=== PATIENT | female | born 1975 | race Caucasian/White ===

== ENCOUNTER 2020-01-28 15:44 | Outpatient (CLI) | payer OTHER ==
--- NOTE | 2020-01-28 20:20 | RAD ---
RIGHT WRIST THREE VIEWS: 01/28/20 No fracture or other bony abnormality was seen. The joints appear normal. The carpal bones appear nor mal. IMPRESSION: No acute findings. POS: HOME
== END 2020-01-28 15:45 | disposition home or self-care (01) ==
LOC: BURRAD 15:44
PROVIDERS: ATTEND Family Medicine
DX: M25.531 Pain in right wrist (principal)

== ENCOUNTER 2020-07-08 17:22 | Emergency (ER) | payer OTHER | END 2020-07-08 17:42 | disposition home or self-care (01) | LOC: BURERS 17:22 | DX: S61.411D Laceration without foreign body of right hand, subsequent encounter (principal); G43.909 Migraine, unspecified, not intractable, without status migrainosus; F41.9 Anxiety disorder, unspecified; F32.9 Major depressive disorder, single episode, unspecified | CPT/HCPCS: 99283 ==

== ENCOUNTER 2020-07-10 17:29 | Emergency (ER) | payer OTHER ==
[2020-07-10] MEDS ORDERED: Ondansetron PF 4 MG/2 ML Vial ONE (17:58)
[2020-07-10] MEDS ORDERED: Morphine 4 MG/ML VIAL ONE (17:58)
[2020-07-10 18:39] LABS: #Lymphocytes 2.3 thou/uL (1.20-3.40); #Neutrophils 5.9 thou/uL (1.40-6.50); %Basophils 0.5 % (0.0-1.0); %Lymphocytes 24.7 % (21.0-51.0); %Monocytes 10.8 % (0.0-10.0); %Neutrophils 64.1 % (42.0-75.0); Mean Corpuscular HGB CONC 31.8 g/dL (32.0-36.0); Mean Corpuscular Hemoglobin 31.9 pg (27.0-31.0); Mean Platelet Volume 7.7 fL (7.4-10.4); Platelet Count 240 thou/uL (130-400); RBC Distribution Width 11.1 % (11.5-14.5); Red Blood Cell (RBC) Count 4.08 mill/uL (4.20-5.40); White Blood Cell (WBC) Count 9.2 thou/uL (4.8-10.8)
[2020-07-10] MEDS ORDERED: Vancomycin 1.5 GRAM/300 ML BAG ONE (18:40)
[2020-07-10 18:48] LABS: ALT (SGPT) 39 U/L (8-55); AST (SGOT) 21 U/L (5-34); Albumin 3.9 g/dL (3.5-5.0); Alkaline Phosphatase 69 U/L (40-110); Anion Gap 15 mmol/L (10-20); BUN (Urea Nitrogen) 10 mg/dL (7.0-18.7); Bilirubin, Total 0.5 mg/dL (0.2-1.2); Calc. Creatinine Clearance 0 mL/min (70-130); Calcium 8.6 mg/dL (7.8-10.44); Carbon Dioxide 24 mmol/L (22-29); Chloride 104 mmol/L (98-107); Estimated GFR-MDRD 80; Globulin 2.8 g/dL (2.4-3.5); Glucose 91 mg/dL (70-105); Potassium 3.9 mmol/L (3.5-5.1); Protein, Total 6.7 g/dL (6.0-8.3); Sodium 139 mmol/L (136-145)
== END 2020-07-10 20:20 | disposition home or self-care (01) ==
LOC: BURERS 17:29
DX: G89.18 Other acute postprocedural pain (principal); M25.531 Pain in right wrist; G43.909 Migraine, unspecified, not intractable, without status migrainosus; F41.9 Anxiety disorder, unspecified; F32.9 Major depressive disorder, single episode, unspecified; Z79.899 Other long term (current) drug therapy
CPT/HCPCS: 36415; 80053; 85025; 85652; 87040; 96365; 96375; J2270; J2405; J3370

== ENCOUNTER 2020-10-31 16:57 | Emergency (ER) | payer OTHER ==
[2020-10-31] MEDS ORDERED: Metoclopramide HCl 10 MG/2 ML VIAL ONE (18:28)
[2020-10-31] MEDS ORDERED: diphenhydrAMINE 50 MG/ML VIAL ONE (18:28)
[2020-10-31] MEDS ORDERED: Ketorolac Tromethamine 30 MG/ML VIAL ONE (18:28)
== END 2020-10-31 20:04 | disposition home or self-care (01) ==
LOC: BURERS 16:57
DX: R51.9 Headache, unspecified (principal)
CPT/HCPCS: 96365; 96375; J1200; J1885; J2765

== ENCOUNTER 2021-02-16 15:22 | Emergency (ER) | payer OTHER | END 2021-02-16 15:45 | disposition home or self-care (01) | LOC: BURERS 15:22 | DX: S06.0X0A Concussion without loss of consciousness, initial encounter (principal); G43.909 Migraine, unspecified, not intractable, without status migrainosus; Z79.899 Other long term (current) drug therapy; W22.8XXA Striking against or struck by other objects, initial encounter | CPT/HCPCS: 99281 ==

== ENCOUNTER 2021-02-23 08:39 | Emergency (ER) | payer OTHER ==
[2021-02-23] MEDS ORDERED: Ondansetron PF 4 MG/2 ML Vial ONE (08:52)
[2021-02-23 09:02] LABS: #Lymphocytes 2.9 thou/uL (1.20-3.40); #Monocytes 0.8 thou/uL (0.11-0.59); #Neutrophils 3.9 thou/uL (1.40-6.50); %Basophils 0.4 % (0.0-1.0); %Monocytes 10.2 % (0.0-10.0); %Neutrophils 51.4 % (42.0-75.0); Hemoglobin 15.6 g/dL (12.0-16.0); Mean Corpuscular HGB CONC 33.6 g/dL (32.0-36.0); Mean Corpuscular Hemoglobin 32.4 pg (27.0-31.0); Mean Corpuscular Volume 96.5 fL (78.0-98.0); Mean Platelet Volume 7.4 fL (7.4-10.4); Platelet Count 287 thou/uL (130-400); RBC Distribution Width 11.8 % (11.5-14.5); Red Blood Cell (RBC) Count 4.81 mill/uL (4.20-5.40); White Blood Cell (WBC) Count 7.7 thou/uL (4.8-10.8)
[2021-02-23 09:15] LABS: ALT (SGPT) 35 U/L (8-55); AST (SGOT) 20 U/L (5-34); Albumin 4.2 g/dL (3.5-5.0); Alkaline Phosphatase 71 U/L (40-110); Anion Gap 14 mmol/L (10-20); BUN (Urea Nitrogen) 11 mg/dL (7.0-18.7); Bilirubin, Total 0.4 mg/dL (0.2-1.2); Calc. Creatinine Clearance 0 mL/min (70-130); Calcium 8.8 mg/dL (7.8-10.44); Carbon Dioxide 26 mmol/L (22-29); Chloride 104 mmol/L (98-107); Globulin 3.1 g/dL (2.4-3.5); Glucose 115 mg/dL (70-105); Potassium 4.2 mmol/L (3.5-5.1); Protein, Total 7.3 g/dL (6.0-8.3); Sodium 140 mmol/L (136-145)
[2021-02-23 09:34] LABS: Bilirubin Negative (Negative); Blood, Urine Negative (Negative); Clarity Slightly Cloudy (Clear); Glucose, Urine (Dipstick) Negative (Negative); Ketone, Urine Negative (Negative); Leukocyte Negative (Negative); Nitrite Negative (Negative); Protein, Urine (Dipstick) Negative (Neg-Trace); Urobilinogen 0.2 mg/dL (Less than 2); pH, Urine 7.5 (5.0-9.0)
== END 2021-02-23 10:22 | disposition home or self-care (01) ==
LOC: BURERS 08:39
DX: R55 Syncope and collapse (principal); R10.816 Epigastric abdominal tenderness; G43.909 Migraine, unspecified, not intractable, without status migrainosus; Z79.899 Other long term (current) drug therapy
CPT/HCPCS: 36415; 70450; 71046; 81003; 93005; 94760; 96374; J2405

== ENCOUNTER 2021-03-10 02:19 | Emergency (ER) | payer OTHER ==
[2021-03-10] MEDS ORDERED: Dicyclomine 20 MG TAB ONE (02:47)
== END 2021-03-10 02:55 | disposition home or self-care (01) ==
LOC: BURERS 02:19
DX: K57.92 Diverticulitis of intestine, part unspecified, without perforation or abscess without bleeding (principal); G43.909 Migraine, unspecified, not intractable, without status migrainosus; Z79.899 Other long term (current) drug therapy
CPT/HCPCS: 99283

== ENCOUNTER 2021-08-29 17:18 | Emergency (ER) | payer OTHER ==
[2021-08-29] MEDS ORDERED: HYDROcodone/Acetaminophen 5/325 mg Tablet ONE (18:00)
[2021-08-29] MEDS ORDERED: Ketorolac Tromethamine 30 MG/ML VIAL ONE (18:00)
== END 2021-08-29 18:17 | disposition home or self-care (01) ==
LOC: BURERS 17:18
DX: S16.1XXA Strain of muscle, fascia and tendon at neck level, initial encounter (principal); X58.XXXA Exposure to other specified factors, initial encounter
CPT/HCPCS: 96372; 99283; J1885

== ENCOUNTER 2021-11-23 11:00 | Emergency (ER) | payer OTHER ==
[2021-11-24 13:00] LABS: SARS-CoV-2 PCR by NAA DETECTED (NotDetected)
== END 2021-11-23 11:56 | disposition home or self-care (01) ==
LOC: BURERS 11:00
DX: U07.1 COVID-19 (principal); G43.909 Migraine, unspecified, not intractable, without status migrainosus; Z87.891 Personal history of nicotine dependence
CPT/HCPCS: 99283; U0003; U0005

== ENCOUNTER 2021-12-01 13:27 | Emergency (ER) | payer OTHER ==
[2021-12-02 16:44] LABS: SARS-CoV-2 PCR by NAA DETECTED (NotDetected)
== END 2021-12-01 14:00 | disposition home or self-care (01) ==
LOC: BURERS 13:27
DX: U07.1 COVID-19 (principal); G43.909 Migraine, unspecified, not intractable, without status migrainosus; Z87.891 Personal history of nicotine dependence
CPT/HCPCS: 99283; U0003; U0005

== ENCOUNTER 2021-12-17 08:47 | Emergency (ER) | payer OTHER ==
[2021-12-17] MEDS ORDERED: Metoclopramide HCl 10 MG/2 ML VIAL ONE (09:18)
[2021-12-17] MEDS ORDERED: diphenhydrAMINE 50 MG/ML VIAL ONE (09:18)
[2021-12-17] MEDS ORDERED: Ketorolac Tromethamine 30 MG/ML VIAL ONE (09:18)
== END 2021-12-17 16:34 | disposition home or self-care (01) ==
LOC: BURERS 08:47
DX: G43.909 Migraine, unspecified, not intractable, without status migrainosus (principal); Z87.891 Personal history of nicotine dependence
CPT/HCPCS: 96365; 96375; J1200; J1885; J2765

== ENCOUNTER 2022-04-21 09:17 | Emergency (ER) | payer OTHER ==
[2022-04-21] MEDS ORDERED: Iopamidol 370 76% 100 ML VIAL FS ONE (09:18)
[2022-04-21 09:57] LABS: #Lymphocytes 2.1 thou/uL (1.20-3.40); #Monocytes 0.6 thou/uL (0.11-0.59); #Neutrophils 5.3 thou/uL (1.40-6.50); %Basophils 0.4 % (0.0-1.0); %Eosinophils 0.1 % (0.0-10.0); %Lymphocytes 25.8 % (21.0-51.0); %Monocytes 7.6 % (0.0-10.0); %Neutrophils 66.2 % (42.0-75.0); Hemoglobin 13.9 g/dL (12.0-16.0); Mean Corpuscular HGB CONC 34.4 g/dL (32.0-36.0); Mean Corpuscular Hemoglobin 32.8 pg (27.0-31.0); Mean Corpuscular Volume 95.5 fL (78.0-98.0); Mean Platelet Volume 8.3 fL (7.4-10.4); Platelet Count 235 thou/uL (130-400); RBC Distribution Width 11.8 % (11.5-14.5); Red Blood Cell (RBC) Count 4.24 mill/uL (4.20-5.40); White Blood Cell (WBC) Count 8.1 thou/uL (4.8-10.8)
[2022-04-21] MEDS ORDERED: Morphine 4 MG/ML VIAL ONE (10:03)
[2022-04-21] MEDS ORDERED: Ondansetron PF 4 MG/2 ML Vial ONE (10:03)
[2022-04-21 10:12] LABS: ALT (SGPT) 26 U/L (8-55); AST (SGOT) 15 U/L (5-34); Alkaline Phosphatase 59 U/L (40-110); Anion Gap 14 mmol/L (10-20); BUN (Urea Nitrogen) 11 mg/dL (7.0-18.7); Bilirubin, Total 0.5 mg/dL (0.2-1.2); Calc. Creatinine Clearance 0 mL/min (70-130); Calcium 8.4 mg/dL (7.8-10.44); Carbon Dioxide 19 mmol/L (22-29); Chloride 110 mmol/L (98-107); Globulin 2.9 g/dL (2.4-3.5); Glucose 106 mg/dL (70-105); Lipase 40 U/L (8-78); Potassium 4.1 mmol/L (3.5-5.1); Protein, Total 6.9 g/dL (6.0-8.3); Sodium 139 mmol/L (136-145)
[2022-04-21 10:26] LABS: Bilirubin Negative (Negative); Blood, Urine Trace (Negative); Clarity Clear (Clear); Glucose, Urine (Dipstick) Negative (Negative); Ketone, Urine Negative (Negative); Leukocyte Negative (Negative); Nitrite Negative (Negative); Protein, Urine (Dipstick) Negative (Neg-Trace); Specific Gravity, Urine 1.025 (1.005-1.030); Urobilinogen 0.2 mg/dL (Less than 2)
[2022-04-21 10:29] LABS: Pregnancy Test - Urine (BHCG) Negative (Negative); Pregu Control Background? CLEAR/WHITE (CLR/WHITE); Pregu Control Bar Appear? YES (CONTROL BAR); Specific Gravity 1.025 (1.002-1.036)
[2022-04-21 10:36] LABS: Bacteria/HPF None Seen HPF (None Seen); RBC/HPF 0-3 HPF (0-3); Squamous Epithelial 0-3 HPF (0-3); WBC/HPF None Seen HPF (0-3)
[2022-04-21] MEDS ORDERED: HYDROcodone/Acetaminophen 5/325 mg Tablet ONE (10:58)
== END 2022-04-21 11:00 | disposition home or self-care (01) ==
LOC: BURERS 09:17
DX: R10.84 Generalized abdominal pain (principal); N18.9 Chronic kidney disease, unspecified; Z87.891 Personal history of nicotine dependence
CPT/HCPCS: 36415; 74177; 80053; 81003; 81015; 81025; 83690; 85025; 96374; 96375; J2270; J2405; Q9967

== ENCOUNTER 2022-06-12 10:35 | Outpatient (CLI) | payer OTHER | END 2022-06-12 10:36 | disposition home or self-care (01) | LOC: BURRAD 10:35 | PROVIDERS: ATTEND Family Medicine | DX: M79.671 Pain in right foot (principal); G89.29 Other chronic pain; M77.31 Calcaneal spur, right foot ==

== ENCOUNTER 2022-07-10 16:49 | Emergency (ER) | payer OTHER ==
[2022-07-10] MEDS ORDERED: Ondansetron PF 4 MG/2 ML Vial ONE (17:19)
[2022-07-10] MEDS ORDERED: Fentanyl 100 MCG/2 ML VIAL ONE (17:19)
[2022-07-10 17:30] LABS: Bilirubin Negative (Negative); Blood, Urine Negative (Negative); Clarity Cloudy (Clear); Glucose, Urine (Dipstick) Negative (Negative); Ketone, Urine Trace mg/dL (Negative); Leukocyte Negative (Negative); Nitrite Negative (Negative); Protein, Urine (Dipstick) Negative (Neg-Trace); Urobilinogen 0.2 mg/dL (Less than 2); pH, Urine 5.5 (5.0-9.0)
[2022-07-10 17:32] LABS: Specific Gravity, Urine 1.039 (1.002-1.036)
[2022-07-10 17:35] LABS: #Lymphocytes 2.7 thou/uL (1.20-3.40); #Monocytes 0.7 thou/uL (0.11-0.59); #Neutrophils 5.1 thou/uL (1.40-6.50); %Basophils 0.5 % (0.0-1.0); %Lymphocytes 31.8 % (21.0-51.0); %Neutrophils 59.7 % (42.0-75.0); Hemoglobin 14.1 g/dL (12.0-16.0); Mean Corpuscular HGB CONC 34.6 g/dL (32.0-36.0); Mean Corpuscular Hemoglobin 32.7 pg (27.0-31.0); Mean Corpuscular Volume 94.3 fL (78.0-98.0); Mean Platelet Volume 7.5 fL (7.4-10.4); Platelet Count 259 thou/uL (130-400); RBC Distribution Width 11.5 % (11.5-14.5); Red Blood Cell (RBC) Count 4.33 mill/uL (4.20-5.40); White Blood Cell (WBC) Count 8.6 thou/uL (4.8-10.8)
[2022-07-10 17:49] LABS: ALT (SGPT) 24 U/L (8-55); AST (SGOT) 12 U/L (5-34); Albumin 4.3 g/dL (3.5-5.0); Alkaline Phosphatase 69 U/L (40-110); Anion Gap 14 mmol/L (10-20); BUN (Urea Nitrogen) 17 mg/dL (7.0-18.7); Bilirubin, Total 0.6 mg/dL (0.2-1.2); Calc. Creatinine Clearance 0 mL/min (70-130); Calcium 9.1 mg/dL (7.8-10.44); Carbon Dioxide 18 mmol/L (22-29); Chloride 111 mmol/L (98-107); Estimated GFR 93; Glucose 104 mg/dL (70-105); Lipase 24 U/L (8-78); Potassium 4.1 mmol/L (3.5-5.1); Protein, Total 7.3 g/dL (6.0-8.3); Sodium 139 mmol/L (136-145)
[2022-07-10] MEDS ORDERED: Ketorolac Tromethamine 30 MG/ML VIAL ONE (18:09)
== END 2022-07-10 18:23 | disposition home or self-care (01) ==
LOC: BURERS 16:49
DX: N83.201 Unspecified ovarian cyst, right side (principal); N18.9 Chronic kidney disease, unspecified; Z87.891 Personal history of nicotine dependence
CPT/HCPCS: 74177; 80053; 81003; 83690; 85025; 94760; 96361; 96374; 96375; J1885; J2405; J3010